=== PATIENT | male | born 1980 | race Caucasian/White ===

== ENCOUNTER 2018-01-01 12:38 | Emergency (ER) | payer SELFPAY ==
[~2018-01-01] VITALS: Ht 180.3 cm; Wt 78.6 kg
[~2018-01-01 12:38] MED LIST: ANTIFLAMATORY; CIPROFLOXACIN500 M1 PO; IBUPROFEN600 MG PO; INDOCIN25 MG PO; NAPROSYN500 MG PO; NO MEDS; TYLENOL REGULA325 MG PO
[2018-01-01] MEDS ORDERED: MOTRIN800 MG PO (13:05)
[2018-01-01 14:03] VITALS: BP 128/99
== END 2018-01-01 14:27 | disposition home or self-care (01) ==
LOC: EME 12:38
PROC: 2W3CX1Z Immobilization of Right Lower Arm using Splint (ICD-10-PCS; principal; 2018-01-01)
DX: S62.326A Displaced fracture of shaft of fifth metacarpal bone, right hand, initial encounter for closed fracture (principal); W22.8XXA Striking against or struck by other objects, initial encounter; Z87.891 Personal history of nicotine dependence; Z88.0 Allergy status to penicillin; Z88.5 Allergy status to narcotic agent
CPT/HCPCS: 73130; 99281; 99283